=== PATIENT | female | born 1970 | race Caucasian/White ===

== ENCOUNTER 2016-08-13 15:58 | Emergency (ER) | payer OTHER ==
[~2016-08-13] VITALS: Ht 167.6 cm; Wt 65.0 kg
[~2016-08-13 15:58] MED LIST: AMOX875 PO; Z.0.NO CURRENT MEDS
[2016-08-13 16:04] VITALS: BP 106/57; PULSE 77; RESP 18; TEMP 97.5; O2SAT 99
--- NOTE | 2016-08-13 16:11 | PD ---
HPI Chief Complaint: Seizure Time Seen by Provider: 16:10 Travel History International Travel<30 days: No Contact w/Intl Traveler<30days: No Traveled to known affect area: No History of Present Illness HPI 46 year-old female history of seizures presents to the emergency department for evaluation of a seizure today. Patient was at home with family when this occurred. She was assisted to the ground. She did not strike her head. Seizure lasted about 45 seconds. Her states that he contacted 911 because she has not had a seizure in over a year and he has not seen her have one for the last 2 years. She did have urinary incontinence. She did not bite her tongue. Patient was postictal on arrival. States that she has been taking her medication as prescribed. She is oriented 3. She reports a mild headache which is typical for her after seizures. Her neurologist is in [facility] and she has an appointment with him in September. She has no other symptoms to report at this time. [facility] Past Medical History Seizures: Yes ?: Not LMP: 08/04/16 Social History Alcohol Use: Yes Tobacco Use: Yes Allergies-Medications (Allergen,Severity, Reaction): Coded Allergies: No Known Allergies (Verified , 08/13/16) Reported Meds & Prescriptions Reported Meds & Active Scripts Active Reported Vimpat (Lacosamide) 100 Mg Tab 100 Mg PO BID Lamotrigine ER (Lamotrigine) 100 Mg Gilson 100 Mg PO DAILY Aripiprazole 5 Mg Tab 5 Mg PO DAILY Duloxetine DR (Duloxetine HCl) 60 Mg Capdr 60 Mg PO HS Alprazolam 0.5 Mg Tab 0.5 Mg PO TID PRN Gabapentin 600 Mg Tab 600 Mg PO DAILY Duloxetine DR (Duloxetine HCl) 30 Mg Capdr 30 Mg PO DAILY Review of Systems Except as stated in HPI: all other systems reviewed are Neg Physical Exam Narrative GENERAL: Well-nourished female patient, lying in bed in no acute distress SKIN: Focused skin assessment warm/dry. HEAD: Atraumatic. Normocephalic. EYES: Pupils equal and round. No scleral icterus. No injection or drainage. ENT: No nasal bleeding or discharge. Mucous membranes pink and moist. NECK: Trachea midline. No JVD. CARDIOVASCULAR: Regular rate and rhythm. No murmur appreciated. RESPIRATORY: No accessory muscle use. Clear to auscultation. Breath sounds equal bilaterally. GASTROINTESTINAL: Abdomen soft, non-tender, nondistended. Hepatic and splenic margins not palpable. MUSCULOSKELETAL: No obvious deformities. No clubbing. No cyanosis. No edema. NEUROLOGICAL: Awake and alert. No obvious cranial nerve deficits. Motor grossly within normal limits. Normal speech. PSYCHIATRIC: Appropriate mood and affect; insight and judgment normal. Data Data Last Documented VS Vital Signs Date Time Temp Pulse Resp B/P Pulse Ox O2 Delivery O2 Flow Rate FiO2 08/13/16 17:55 70 17 110/60 99 08/13/16 16:09 Room Air 08/13/16 16:04 97.5 Orders Complete Blood Count With Diff (08/13/16 16:14) Alcohol (Ethanol) (08/13/16 16:14) Drug Screen, Random Urine (08/13/16 16:14) Electrocardiogram (08/13/16 ) Blood Glucose (08/13/16 16:14) Ecg Monitoring (08/13/16 16:14) Iv Access Insert/Monitor (08/13/16 16:14) Oximetry (08/13/16 16:14) Comprehensive Metabolic Panel (08/13/16 16:14) Sodium Chlor 0.9% 1000 Ml Inj (Ns 1000 M (08/13/16 16:14) Sodium Chloride 0.9% Flush (Ns Flush) (08/13/16 16:15) Urinalysis - C+S If Indicated (08/13/16 16:14) Magnesium (Mg) (08/13/16 16:14) Acetaminophen (Tylenol) (08/13/16 16:30) Potassium Chloride (Kcl) (08/13/16 18:00) Labs Laboratory Tests Test 08/13/16 08/13/16 16:30 17:45 White Blood Count 7.3 TH/MM3 Red Blood Count 4.03 MIL/MM3 Hemoglobin 12.8 GM/DL Hematocrit 36.6 % Mean Corpuscular Volume 90.9 FL Mean Corpuscular Hemoglobin 31.7 PG Mean Corpuscular Hemoglobin 34.9 % Concent Red Cell Distribution Width 13.5 % Platelet Count 206 TH/MM3 Mean Platelet Volume 10.0 FL Neutrophils (%) (Auto) 61.7 % Lymphocytes (%) (Auto) 23.9 % Monocytes (%) (Auto) 9.1 % Eosinophils (%) (Auto) 3.5 % Basophils (%) (Auto) 1.8 % Neutrophils # (Auto) 4.5 TH/MM3 Lymphocytes # (Auto) 1.7 TH/MM3 Monocytes # (Auto) 0.7 TH/MM3 Eosinophils # (Auto) 0.3 TH/MM3 Basophils # (Auto) 0.1 TH/MM3 CBC Comment DIFF FINAL Differential Comment Sodium Level 137 MEQ/L Potassium Level 3.0 MEQ/L Chloride Level 104 MEQ/L Carbon Dioxide Level 23.6 MEQ/L Anion Gap 9 MEQ/L Blood Urea Nitrogen 10 MG/DL Creatinine 0.88 MG/DL Estimat Glomerular Filtration 70 ML/MIN Rate Random Glucose 105 MG/DL Calcium Level 8.3 MG/DL Magnesium Level 1.7 MG/DL Total Bilirubin 0.7 MG/DL Aspartate Amino Transf 30 U/L (AST/SGOT) Alanine Aminotransferase 39 U/L (ALT/SGPT) Alkaline Phosphatase 58 U/L Total Protein 6.2 GM/DL Albumin 3.6 GM/DL Ethyl Alcohol Level LESS THAN 3 MG/DL Urine Color YELLOW Urine Turbidity CLOUDY Urine pH 6.5 Urine Specific [place] 1.014 Urine Protein TRACE mg/dL Urine Glucose (UA) NEG mg/dL Urine Ketones 10 mg/dL Urine Occult Blood NEG Urine Nitrite NEG Urine Bilirubin NEG Urine Urobilinogen LESS THAN 2.0 MG/DL Urine Leukocyte Esterase SMALL Urine RBC 2 /hpf Urine WBC 7 /hpf Urine Squamous Epithelial 30 /hpf Cells Urine Hyaline Casts 3 /lpf Urine Mucus FEW /lpf Urine Yeast (Budding) OCC Microscopic Urinalysis Comment CULT NOT INDICATED Urine Opiates Screen NEG Urine Barbiturates Screen NEG Urine Amphetamines Screen NEG Urine Benzodiazepines Screen NEG Urine Cocaine Screen NEG Urine Cannabinoids Screen POS MDM Medical Decision Making Medical Screen Exam Complete: Yes Emergency Medical Condition: Yes Medical Record Reviewed: Yes Differential Diagnosis Breakthrough seizure versus medication noncompliance versus electric light abnormality versus viral syndrome Narrative Course 46 year-old female presents to emergency department for evaluation following a seizure. Patient appears without distress. Vital signs are stable. EKG is reviewed by my attending. CBC is without acute concern. CMP is with hypokalemia 3.0. This is repleted here in the emergency department. EtOH is less than 3. Discussed the patient my attending physician Dr. Hutton. Patient will be discharged home to follow-up with her neurologist. She is instructed to continue her medication as prescribed. Patient and family at bedside are comfortable with this plan of care. They agree to return immediately with any acute worsening of symptoms. Diagnosis Primary Impression: Seizure Additional Impression: Hypokalemia Referrals: Neurologist call for appointment Primary Care Physician Patient Instructions: General Instructions, Recurrent Seizures in Adults (DC) Additional Instructions: Follow-up with a primary care provider Call your neurologist tomorrow to schedule follow-up sooner than September Continue medication as already prescribed Return immediately with any acute worsening of symptoms Med/Other Pt SpecificInfo: No Change to Meds Disposition: 01 DISCHARGE HOME Condition: Stable Anastasia Aguirre Aug 13, 2016 16:10
[2016-08-13] MEDS ORDERED: SODIUM CHLOR 0.9% 1000 ML INJ 1,000 ML IV ONE (16:14)
[2016-08-13] MEDS ORDERED: SODIUM CHLORIDE 0.9% FLUSH 10 ML FLUSH IVF PRN (16:15)
[2016-08-13] MEDS ORDERED: ACETAMINOPHEN 325 MG TAB PO ONE (16:30)
[2016-08-13] MEDS ORDERED: DULO1CAP2 PO (16:38)
[2016-08-13] MEDS ORDERED: ARIP1TAB11 PO (16:42)
[2016-08-13] MEDS ORDERED: LAMO100T68 PO (16:42)
[2016-08-13] MEDS ORDERED: ALPR0.5T3 PO (16:42)
[2016-08-13] MEDS ORDERED: DULO1CAP3 PO (16:42)
[2016-08-13] MEDS ORDERED: LACO100 PO (16:42)
[2016-08-13] MEDS ORDERED: GABA600T PO (16:42)
[2016-08-13 17:05] LABS: AUTOMATED NEUTROPHIL # 4.5 TH/MM3 (1.8-7.7); BASOPHIL # 0.1 TH/MM3 (0-0.2); BASOPHIL % 1.8 % (0.0-2.0); EOSINOPHIL # 0.3 TH/MM3 (0-0.4); EOSINOPHIL % 3.5 % (0.0-4.0); HEMATOCRIT 36.6 % (35.0-46.0); HEMO FLAGS DIFF FINAL; LYMPH % 23.9 % (9.0-44.0); LYMPHOCYTE # 1.7 TH/MM3 (1.0-4.8); MEAN CELL VOLUME 90.9 FL (80.0-100.0); MEAN CORPUSCULAR HEMOGLOBIN 31.7 PG (27.0-34.0); MEAN CORPUSCULAR HGB CONC 34.9 % (32.0-36.0); MONO % 9.1 % (0.0-8.0); NEUT % 61.7 % (16.0-70.0); PLATELET COUNT 206 TH/MM3 (150-450); RED BLOOD COUNT 4.03 MIL/MM3 (4.00-5.30); RED CELL DISTRIBUTION WIDTH 13.5 % (11.6-17.2); WHITE BLOOD COUNT 7.3 TH/MM3 (4.0-11.0)
[2016-08-13 17:32] LABS: ANION GAP 9 MEQ/L (5-15)
[2016-08-13 17:35] LABS: ALKALINE PHOSPHATASE 58 U/L (45-117); ALT (GPT) 39 U/L (10-53); AST (GOT) 30 U/L (15-37); BICARBONATE 23.6 MEQ/L (21.0-32.0); BLOOD UREA NITROGEN 10 MG/DL (7-18); CHLORIDE 104 MEQ/L (98-107); GLOMERULAR FILTRATION RATE 70 ML/MIN (>89); MAGNESIUM 1.7 MG/DL (1.5-2.5); SODIUM (NA) 137 MEQ/L (136-145); TOTAL BILIRUBIN ADULT 0.7 MG/DL (0.2-1.0)
[2016-08-13 17:55] VITALS: BP 110/60; PULSE 70; RESP 17; O2SAT 99
[2016-08-13] MEDS ORDERED: POTASSIUM CHLORIDE 10 MEQ CONTROLLED RELEASE TAB PO ONE (18:00)
[2016-08-13 18:16] LABS: BLOOD, URINE NEG (NEG); COMMENT (UR) CULT NOT INDICATED; CULTURE IF INDICATED CULT NOT INDICATED; GLUCOSE,URINE NEG (NEG); HYALINE CAST, URINE 3 /lpf (RARE); KETONE, URINE 10 mg/dL (NEG); MUCUS URINE FEW /lpf (OCC); NITRITE,URINE NEG (NEG); PH, URINE 6.5 (5.0-8.5); SQUAMOUS EPITHELIAL CELL URINE 30 /hpf (0-5); URINE COLOR YELLOW (YELLW/STRAW)
[2016-08-13 18:17] LABS: AMPHETAMINE, URINE NEG (NEG); BARBITURATES, URINE NEG (NEG); COCAINE, URINE NEG (NEG)
--- NOTE | 2016-08-14 22:58 | EKG ---
Date Performed: 08/13/2016 Time Performed: 18:31:58 PTAGE: 46 years EKG: Sinus rhythm NORMAL ECG INTERPRETATION BASED ON A DEFAULT AGE OF 42 YEARS NO PREVIOUS TRACING DOCTOR: Flaquito Abrams Interpretating Date/Time 08/14/2016 22:56:35
--- NOTE | 2016-08-14 23:03 | EKG ---
Date Performed: 08/13/2016 Time Performed: 16:21:54 PTAGE: 46 years EKG: Sinus rhythm NONSPECIFIC ST & T-WAVE ABNORMALITY PROLONGED QT INTERVAL ABNORMAL ECG PREVIOUS TRACING : 10/01/2004 20.18 Compared to prior tracing no significant change DOCTOR: Flaquito Abrams Interpretating Date/Time 08/14/2016 23:02:12
== END 2016-08-13 18:49 | disposition home or self-care (01) ==
LOC: NEPE 15:58
DX: R56.9 Unspecified convulsions (principal); E87.6 Hypokalemia
CPT/HCPCS: 80053; 80307; 81001; 83735; 85025; 93005; 99284; J7030